=== PATIENT | female | born 1995 | race African-American/Black ===

== ENCOUNTER 2016-11-24 10:17 | Emergency (ER) | payer OTHER ==
[~2016-11-24] VITALS: Ht 152.4 cm; Wt 73.9 kg
[~2016-11-24 10:17] MED LIST: IBUPROFEN800 MG PO
[2016-11-24 10:40] VITALS: BP 129/86
[2016-11-24] MEDS ORDERED: VITAFOL ULTRA1 EACH PO (11:30)
--- NOTE | 2016-11-24 11:30 | ED GENERAL ADULT ---
History of Present Illness General Chief Complaint: Female Urogenital Problems Stated Complaint: SIB MD MIRANDA,17 WEEKS PREG "LEAKING FLUID" Source: patient Exam Limitations: no limitations Vital Signs & Intake/Output Vital Signs & Intake/Output Vital Signs Date Time Temp Pulse Resp B/P Pulse O2 O2 Flow FiO2 Ox Delivery Rate 11/24 1040 96.1 84 24 129/86 99 Room Air Allergies Coded Allergies: NO KNOWN ALLERGIES (02/28/15) Reconcile Medications Pnv#67/Iron Ps/FA Cmb#1/Dha (Vitafol Ultra Softgel) 29 MG IRON-1 MG-200 MG CAPSULE 1 CAP PO DAILY (Reported) Triage Note: STATES SHE HAS BEEN LEAKING CLEAR VAGINAL FLUID SINCE LAST PM, WITH VOMITING. ALSO C/O SLIGHT LOWER ABDOMINAL CRAMPING. 17 WEEKS . SENT HERE BY DR. MIRANDA. STATES SHE HAD A UTI 3 WEEKS AGO. Triage Nurses Notes Reviewed? yes Onset: Gradual Duration: day(s): (1) Timing: no prior history Injury Environment: home Severity: moderate Severity Numbers: 5 No Modifying Factors: none : Yes Patient currently breastfeeds: No HPI: Patient is a 21-year-old female who is currently 17 weeks , due date 11/2016 presenting to the emergency department with chief complaint of leaking clear fluid from her vagina 2 days. She reports that when she stood up last night she felt fluid, out, again this morning. Denies any abdominal pain. No vaginal bleeding. Denies any nausea vomiting fevers or chills chest pain or shortness of breath. No lightheadedness. Denies any urinary frequency or urgency or dysuria. She called her INTELLIGENCE CLERK who would like her to get an ultrasound. (HERBERTH MERCADO) Past History Travel History Traveled to [place] past 21 day No Medical History Any Pertinent Medical History? see below for history Surgical History Surgical History: non-contributory Psychosocial History What is your primary language Bengali Tobacco Use: Never used ETOH Use: denies use Family History Hx Contributory? No (HERBERTH MERCADO) Review of Systems Review of Systems Constitutional: Reports: no symptoms. Comments Review of systems: See HPI, All other systems negative. Constitutional, no chills fever or weight loss HEENT: No visual changes no sore throat no congestion Cardiovascular: No chest pain ,palpitation Skin, no jaundice no rashes Respiratory: No dyspnea cough sputum or hemoptysis GI: No nausea no vomiting : No dysuria No hematuria Muscle skeletal: no back pain, no neck pain, Neurologic: No numbness Immunology: No splenectomy or history of AIDS (HERBERTH MERCADO) Physical Exam Physical Exam General Appearance: well developed/nourished, no apparent distress, alert, awake , comfortable Comments: Well-developed well-nourished person in no acute distress HEENT: Pupils equally round and reactive to light and accommodation. Nose is atraumatic. Neck: Normal inspection Back: Nontender Cardiovascular: Regular rate and rhythms no murmurs rubs or gallops, normal JVP Respiratory: Chest nontender. No respiratory distress.breath sounds clear to auscultation bilaterally Abdomen: Soft, nontender, abdomen Extremity: No edema Neuro: Alert oriented x3 Skin: No appreciable rash on exposed skin, skin is warm and dry. Psych: Mood and affect is normal, memory and judgment is normal. Core Measures ACS in differential dx? No CVA/TIA Diagnosis: No Severe Sepsis Present: No Septic Shock Present: No (HERBERTH MERCADO) Progress Differential Diagnoses I considered the following diagnoses in my evaluation of the patient: Amniotic fluid leak, urinary tract infection, threatened , intrauterine Plan of Care: Laboratory Tests 11/24/16 1130: Urine Color Cancelled, Urine Clarity Cancelled, Urine pH Cancelled, Ur Specific Icard Cancelled, Urine Protein Cancelled, Urine Ketones Cancelled, Urine Nitrite Cancelled, Urine Bilirubin Cancelled, Urine Urobilinogen Cancelled, Ur Leukocyte Esterase Cancelled, Ur Microscopic Cancelled, Urine Hemoglobin Cancelled, Urine Glucose Cancelled Initial ED EKG: none Comments: Spoke with Dr. Miranda, patient to be discharged to her office for ultrasound. Dr. Miranda would not like anything done in the emergency department. Discussed with Dr. Bain AND he agrees with plan. (HERBERTH MERCADO) Departure Departure Time of Disposition: 1159 Disposition: HOME OR SELF CARE Condition: Stable Clinical Impression Primary Impression: Vaginal discharge during Qualifiers: Trimester: second trimester Qualified Codes: O26.892 - Other specified related conditions, second trimester; N89.8 - Other specified noninflammatory disorders of vagina Ruled Out Impressions: Vaginal discharge Referrals: ROBERT ROBERTS,ALONSO Sheldon (PCP/Family) Additional Instructions: Follow-up with Dr. Miranda, go to her office immediately after discharge for evaluation with ultrasound. Departure Forms: Customer Survey General Discharge Information (HERBERTH MERCADO) PA/BARREL ENDSHAKER ADJUSTER Co-Sign Statement Statement: ED Attending supervision documentation- x I saw and evaluated the patient. I have also reviewed all the pertinent lab results and diagnostic results. I agree with the findings and the plan of care as documented in the PA's/BARREL ENDSHAKER ADJUSTER's documentation. [] I have reviewed the ED Record and agree with the PA's/BARREL ENDSHAKER ADJUSTER's documentation. [] Additions or exceptions (if any) to the PAs/BARREL ENDSHAKER ADJUSTER's note and plan are summarized below: [] (TOMAS ROBERTS,ALFRED) Critical Care Note Critical Care Note Critical Care Time: non-applicable (HERBERTH MERCADO)
== END 2016-11-24 12:23 ==
LOC: ERH 10:17
DX: O26.892 Other specified pregnancy related conditions, second trimester (principal); N89.8 Other specified noninflammatory disorders of vagina; Z3A.17 17 weeks gestation of pregnancy

== ENCOUNTER 2017-05-05 07:35 | Inpatient (IN) | payer OTHER ==
[~2017-05-05] VITALS: Ht 152.4 cm; Wt 80.7 kg
[~2017-05-05 07:35] MED LIST changes: +VITAFOL ULTRA1 EACH PO
[2017-05-05 07:59] VITALS: BP 126/85
--- NOTE | 2017-05-05 08:19 | History & Physical ---
General Information and HPI MD Statement: I have seen and personally examined ANNABELLALISANDRO and documented this H&P. The patient is a 22 year old female at [] weeks and [] days gestation who presented with a chief complaint of []. 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 Para: 1 Last Menstrual Period: 06/09/16 Past meter installer and remover History: none Surgical History Pertinent Surgical History: non-contributory Past Family/Social History Psychosocial History Smoking Status: Former Smoker Exam & Diagnostic Data Last 24 Hrs of Vital Signs/I&O Vital Signs Date Time Temp Pulse Resp B/P B/P Pulse O2 O2 Flow FiO2 Mean Ox Delivery Rate 05/05 0759 126/85 Intake & Output 05/05 1600 05/05 0800 05/05 0000 Intake Total Output Total Balance Patient 178 lb Weight Obstetric Exam Wgt Gained During : 14 Pelvimetry: TESTED TO 6 9 Dilation (cm): 3 Effacement (%): 80 Station: 0 Membranes: intact Fluid: unknown Fundal Height (cm): 36 Multiple Gestation? No Contractions: Q3 MINUTES Patient for Induction? No Labs Blood Type & Rh: O POSITIVE Antibody Screen: NEG Hct/Hgb & Platelets #1: Hct/Hgb & Platelets #2: 111 Rubella: I VDRL #1: NR VDRL #2: NR HbsAg: NEG HIV #1: NEG HIV #2 NEG 1 Hr PG: NOT Group B Strep: POSITIVE Initial Ultrasound: NL Anatomy Ultrasound: NL Genetic Testing: NEG Assessment/Plan As Ranked By This Provider Problem List: 1. Core Measures/Miscellaneous Venous Thromboembolism VTE Risk Factors: / VTE Contraindications: No Contraindications VTE Diagnosis: No Beta Tonya Is Beta Tonya a Home Med? No Antibiotics Is Patient on Antibiotics? No
[2017-05-05 10:02] LABS: ABSOLUTE BASOPHIL COUNT 0 /CUMM (0.0-0.2); ABSOLUTE EOSINOPHIL COUNT 0 /CUMM (0.0-0.7); ABSOLUTE GRANULOCYTE CT 5.1 /CUMM (1.4-6.5); ABSOLUTE LYMPH COUNT 2.2 /CUMM (1.2-3.4); ABSOLUTE MONOCYTE COUNT 0.5 /CUMM (0.10-0.60); BASOPHIL % 0.4 % (0.0-2.0); EOSINOPHIL % 0.6 % (0-5); GRANULOCYTE % 64.4 % (42.2-75.2); HEMATOCRIT 32.2 % (37-47); MEAN CORPUSCULAR HGB 21.3 PG (27.0-31.0); MEAN CORPUSCULAR HGB CONC 32.2 G/DL (33.0-37.0); PLATELET COUNT 213 /CUMM (130-400); RBC DISTRIBUTION WIDTH 13.4 % (11.5-14.5); RED BLOOD CELL CT 4.89 /CUMM (4.20-5.40)
--- NOTE | 2017-05-05 11:36 | PN- Obstetrical ---
Subjective Subjective: NO COMPLAINTS Objective Last 24 Hrs of Vital Signs/I&O Vital Signs Date Time Temp Pulse Resp B/P B/P Pulse O2 O2 Flow FiO2 Mean Ox Delivery Rate 05/05 0759 126/85 Intake & Output 05/05 1600 05/05 0800 05/05 0000 Intake Total Output Total Balance Patient 178 lb Weight Physical Exam: PE pleasant black female in labor HEENT anicteric Abdomen soft nontender Obstetric Exam Dilation (cm): 3 Effacement (%): 80 Station: 0 Membranes: AROM Fluid: clear Multiple Gestation? No Contractions: CTX Q3 MINUTES Assessment/Plan Assessment/Plan Assessment term augmentation of labor with Pitocin Plan continue Pitocin things need to observe I FM AROM clear
--- NOTE | 2017-05-05 16:07 | Labor & Delivery Summary ---
Delivery Summary Vaginal Delivery: Vaginal: vertex Episiotomy/Lacerations: Episiotomy/Lacerations: ANTERIOR LACERATIONNOT BLEEDING Placenta: Placenta: spontanteous, normal, 3 vessel, nuchal cord (x_) (1) Anesthesia: block Additional Comments: S MECONIUM VIABLE FEMALE OVER LACNOT BLEEDING
[2017-05-05] MEDS ORDERED: IBUPROFEN800 M1 PO (16:12)
[2017-05-06 06:08] LABS: ABSOLUTE BASOPHIL COUNT 0 /CUMM (0.0-0.2); ABSOLUTE EOSINOPHIL COUNT 0 /CUMM (0.0-0.7); BASOPHIL % 0.1 % (0.0-2.0)
[2017-05-06 06:17] LABS: MEAN CORPUSCULAR VOLUME 67.7 FL (81.0-99.0)
[2017-05-06 06:19] LABS: MEAN CORPUSCULAR HGB 21.1 PG (27.0-31.0); MEAN CORPUSCULAR HGB CONC 31.4 G/DL (33.0-37.0); MEAN PLATELET VOLUME 10.8 FL (7.4-10.4); PLATELET COUNT 195 /CUMM (130-400); RED BLOOD CELL CT 4.62 /CUMM (4.20-5.40); WHITE BLOOD CELL COUNT 12.6 /CUMM (4.8-10.8)
[2017-05-06 06:20] LABS: ABSOLUTE GRANULOCYTE CT 8.6 /CUMM (1.4-6.5); ABSOLUTE LYMPH COUNT 2.8 /CUMM (1.2-3.4); ABSOLUTE MONOCYTE COUNT 1.2 /CUMM (0.10-0.60); EOSINOPHIL % 0.3 % (0-5); GRANULOCYTE % 68.5 % (42.2-75.2)
--- NOTE | 2017-05-06 20:48 | PN- Post Delivery/GYN ---
Subjective Subjective: No complaints Objective Last 24 Hrs of Vital Signs/I&O Vital signs stable as per her paper chart Physical Exam: Petite black female HEENT anicteric Lungs clear Abdomen soft nontender Fundus firm nontender Lochia minimal Extremities +2 edema Negative Homans Assessment/Plan Assessment/Plan Assessment is status post normal spontaneous vaginal delivery augmented with Pitocin plan discharge in a.m.
== END 2017-05-07 11:30 | DRG 560 ==
LOC: GNO 07:35
PROVIDERS: ADMIT Specialist
PROC: 10E0XZZ Delivery of Products of Conception, External Approach (ICD-10-PCS; principal; 2017-05-05)
PROC: 3E033VJ Introduction of Other Hormone into Peripheral Vein, Percutaneous Approach (ICD-10-PCS; 2017-05-05)
PROC: 10907ZC Drainage of Amniotic Fluid, Therapeutic from Products of Conception, Via Natural or Artificial Opening (ICD-10-PCS; 2017-05-05)
DX: O70.0 First degree perineal laceration during delivery (principal); O69.81X0 Labor and delivery complicated by cord around neck, without compression, not applicable or unspecified; O99.824 Streptococcus B carrier state complicating childbirth; Z3A.39 39 weeks gestation of pregnancy; Z37.0 Single live birth
CPT/HCPCS: GNOS; 36415; 80307; 81001; 87086; J0290; J7120